=== PATIENT | female | born 1980 | race Caucasian/White ===

== ENCOUNTER 2016-03-08 15:33 | Emergency (ER) | payer SELFPAY ==
[2016-03-08] MEDS ORDERED: Albuterol/Ipratropium NEB.SOL* Albuterol 2.5 MG/Ipratropium 0.5 MG 3 ML ONE (15:34)
--- NOTE | 2016-03-08 15:38 | UC ---
Throat Pain/Nasal Denny HPI - HPI Summary HPI Summary: complaint of cough that started on 03/04/16 non productive cough hasn't been using albuterol because it makes her feel nauseous at times breathing has worsened and today she noticed a cold sore on her lip complaint of right foot pain since 03/04/16 after being on her feet for an entire day sees Dr Cooper will be scheduling surgery for torn ligaments has tried to use a CAM boot in the past but told not to wear boot by ortho was being seen by the pain clinic but stopped being seen them d/t insurance taking mobic for pain and ibuprofen or tylenol without relief ambulating makes it worse, rest lessens the pain constant aching non radiating pain on medial side of foot denies recent trauma - History of Current Complaint Stated Complaint: CHEST CONGESTION Time Seen by Provider: 03/08/16 15:34 Hx Obtained From: Patient Hx Last Menstrual Period: 11/09/13 - Allergies/Home Medications Allergies/Adverse Reactions: Allergies Allergy/AdvReac Type Severity Reaction Status Date / Time Codeine AdvReac Intermediate Itching Verified 03/08/16 15:39 Diphenhydramine AdvReac PANIC Verified 03/08/16 15:39 [From Benadryl] ATTACK ENVIRONMENTAL Allergy Unknown Uncoded 03/08/16 15:39 Reaction Details PMH/Surg Hx/FS Hx/Imm Hx Previously Healthy: No - asthma symptoms Endocrine History Of: Denies: Diabetes, Thyroid Disease Cardiovascular History Of: Denies: Cardiac Disorders, Hypertension, Pacemaker/ICD Respiratory History Of: Reports: Asthma Denies: COPD GI/ History Of: Denies: Gastroesophageal Reflux, Ulcer, Renal Disease Neurological History Of: Denies: CVA, Dementia, Seizures Psychological History Of: Reports: Anxiety - NO MEDS, Depression - NO MEDS Other History Of: Negative For: Anticoagulant Therapy - Surgical History Surgical History: Yes Surgery Procedure, Year, and Place: PITER 2002, [place]LE[place]STECTOMY [place] 2007, PLEOMORPHIC ADENECTOMY [facility] 2007, 2009 RIGHT CARPAL TUNNEL RELEASE [place], 2007 ENDOSCOPY [facility],. HYSERECTOMY 2015 [facility], 2014 LEFT CARPAL TUNNEL RELEASE [place],. 2015 RIGHT CARPAL TUNNEL REVISION, 2015 ULNAR NURVE RELEASE RIGHT - Family History Known Family History: Positive: Hypertension Negative: Cardiac Disease, Diabetes - Social History Occupation: Employed Full-time Lives: With Family Alcohol Use: None Substance Use Type: None Smoking Status (MU): Heavy Every Day Tobacco Smoker Type: Cigarettes Amount Used/How Often: 1/2 PACK A DAY Have You Smoked in the Last Year: No When Did the Patient Quit Smoking/Using Tobacco: 07/2013 Cessation Counseling: Patient Advised to Stop Review of Systems Constitutional: Negative Skin: Negative Eyes: Negative ENT: Nasal Discharge Respiratory: Shortness Of Breath, Cough Cardiovascular: Negative Gastrointestinal: Negative Genitourinary: Negative Motor: Negative Neurovascular: Negative Musculoskeletal: Other: - right foot pain Neurological: Negative Psychological: Negative All Other Systems Reviewed And Are Negative: Yes Physical Exam Triage Information Reviewed: Yes Appearance: No Pain Distress, Well-Nourished, Other: - able to speak in full sentences Vital Signs Reviewed: Yes Eyes: Positive: Conjunctiva Clear ENT: Positive: Pharynx normal, Nasal congestion, TMs normal, Other: - cold sore left upper lip-lateral Neck: Positive: No Lymphadenopathy Respiratory: Positive: Decreased breath sounds, Wheezing - throughout Cardiovascular: Positive: No Murmur, Pulses Normal, Tachycardia Abdomen Description: Positive: Nontender, Soft Bowel Sounds: Positive: Present Musculoskeletal: Positive: No Edema, Other: - right foot -mild edema and tenderness medial side of ankle Neurological: Positive: Alert Psychological Exam: Normal Skin Exam: Normal Re-Evaluation - Re-Evaluation First Eval Re-Evaluation Time: 04:15 Change: Improved Comment: less wheezing throughout , more air movement throughout Throat Pain/Nasal Course/Dx - Course Course Of Treatment: exam completed. lung sounds improved with duoneb treatment. will treat with prednisone and antiviral d/t herpes infection. right foot pain - prednisone may help reduce pain will continue mobic and followup with Dr Cooper. - Differential Dx/Diagnosis Differential Diagnosis/HQI/PQRI: Pharyngitis - asthma excerbation, URI Provider Diagnoses: asthma excerbation, chronic right foot pain, HSV1 Discharge - Discharge Plan Condition: Stable Disposition: HOME Prescriptions: Acyclovir TAB* [Zovirax TAB*] 400 mg PO QID #20 tab predniSONE TAB* [Deltasone TAB*] 50 mg PO DAILY #5 tab Patient Education Materials: Asthma (ED), Oral Herpes Simplex Virus Infections (ED) Referrals: Yanira Morfin MD [Primary Care Provider] - Additional Instructions: Please take antiviral and steroids as directed Use your albuterol inhaler every 4-6 hours when needed for wheezing, shortness of breath or uncontrolled coughing. Increase fluids and rest continue to take MObis for pin in right foot and followup with Dr Cooper Please review your discharge instructions. If your symptoms do not improve please call your primary care provider or return to urgent care.
[2016-03-08 15:39] VITALS: BP 129/74
[2016-03-08] MEDS ORDERED: Albuterol/Ipratropium NEB.SOL* Albuterol 2.5 MG/Ipratropium 0.5 MG 3 ML INH ONE (16:03)
== END 2016-03-08 16:16 | disposition home or self-care (01) ==
LOC: UCEAST 15:33
DX: J45.901 Unspecified asthma with (acute) exacerbation (principal); B00.1 Herpesviral vesicular dermatitis; F17.210 Nicotine dependence, cigarettes, uncomplicated; Z88.5 Allergy status to narcotic agent; Z88.8 Allergy status to other drugs, medicaments and biological substances
CPT/HCPCS: 99212; A9270-GY; G0463

== ENCOUNTER 2016-03-20 03:18 | Emergency (ER) | payer SELFPAY ==
[2016-03-20 03:27] VITALS: BP 149/93
--- NOTE | 2016-05-19 23:13 | ED ---
I, Barrett,Sandi, scribed for Matt Evans MD on 03/20/16 at 0325 . Medical Screening - HPI Summary HPI Summary: This 35 y/o female presents to ED along with trooper for legal blood draw. Pt does not have any complaint at this moment. - History of Current Complaint Stated Complaint: LEGAL BLOOD DRAW Time Seen by Provider: 03/20/16 03:21 Associated Signs and Symptoms: Negative PMH/Surg Hx/FS Hx/Imm Hx Endocrine/Hematology History: Denies: Hx Anticoagulant Therapy, Hx Diabetes, Hx Thyroid Disease Cardiovascular History: Denies: Hx Hypertension, Hx Pacemaker/ICD, Other Cardiovascular Problems/ Disorders Respiratory History: Reports: Hx Asthma Denies: Hx Chronic Obstructive Pulmonary Disease (COPD), Other Respiratory Problems/Disorders GI History: Reports: Hx Gastroesophageal Reflux Disease Denies: Hx Ulcer, Other GI Disorders History: Denies: Hx Renal Disease Musculoskeletal History: Reports: Hx Tendonitis - BILATERAL WRIST Denies: Other Musculoskeletal History Sensory History: Reports: Hx Contacts or Glasses - GLASSES Denies: Hx Hearing Aid Opthamlomology History: Reports: Hx Contacts or Glasses - GLASSES Neurological History: Denies: Hx Dementia, Hx Seizures, Other Neuro Impairments/Disorders Psychiatric History: Reports: Hx Anxiety - NO MEDS, Hx Depression - NO MEDS, Hx Panic Disorder - ANXIETY Denies: Hx Substance Abuse - Cancer History Cancer Type, 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 HYSERECTOMY 2015 [facility], 2014 LEFT CARPAL TUNNEL RELEASE [place],. 2015 RIGHT CARPAL TUNNEL REVISION, 2015 ULNAR NURVE RELEASE RIGHT Hx Anesthesia Reactions: Yes - DIFFICUTY WAKING UP Infectious Disease History: Denies: Hx Clostridium Difficile, Hx Hepatitis, Hx Human Immunodeficiency Virus (HIV), Hx of Known/Suspected MRSA, Hx Shingles, Hx Tuberculosis, History Other Infectious Disease - Family History Known Family History: Positive: Hypertension Negative: Cardiac Disease, Diabetes - Social History Alcohol Use: None Substance Use Type: Reports: None Smoking Status (MU): Heavy Every Day Tobacco Smoker Type: Cigarettes Amount Used/How Often: 1/2 PACK A DAY Have You Smoked in the Last Year: No Review of Systems Negative: Fever Negative: Depressed All Other Systems Reviewed And Are Negative: Yes Physical Exam Triage Information Reviewed: Yes Vital Signs On Initial Exam: Initial Vitals Temp Pulse Resp BP Pulse Ox 97.7 F 85 16 149/93 94 03/20/16 03:24 03/20/16 03:24 03/20/16 03:24 03/20/16 03:24 03/20/16 03:24 Vital Signs Reviewed: Yes Diagnostics - Vital Signs Vital Signs Temp Pulse Resp BP Pulse Ox 03/20/16 03:24 97.7 F 85 16 149/93 94 - Laboratory Lab Statement: Any lab studies that have been ordered have been reviewed, and results considered in the medical decision making process. Course/Dx - Diagnoses Provider Diagnoses: Encounter for medical screening examination Discharge - Discharge Plan Condition: Stable Disposition: HOME Referrals: Yanira Morfin MD [Primary Care Provider] - Additional Instructions: Pt was present in [facility] ED for legal blood draw. The documentation as recorded by the Barrett balderas Soohyun accurately reflects the service I personally performed and the decisions made by Nathan jeronimo David, MD.
== END 2016-03-20 03:41 | disposition home or self-care (01) ==
LOC: ED 03:18
DX: Z02.83 Encounter for blood-alcohol and blood-drug test (principal)
CPT/HCPCS: 99282

== ENCOUNTER 2016-04-06 21:23 | Emergency (ER) | payer OTHER, MEDICAID ==
[2016-04-06] MEDS ORDERED: Aspirin Low Dose CHEW TAB* 81 MG PO ONE (22:23)
[2016-04-06] MEDS ORDERED: Albuterol 2.5 MG/3 ML NEB.SOL* (0.083%) INH ONE (22:27)
[2016-04-06] MEDS ORDERED: Ipratropium 0.5MG/2.5ML NEB* 0.5 MG/2.5 ML NEB.SOLN INH ONE (22:27)
[2016-04-06 22:50] VITALS: BP 120/74
--- NOTE | 2016-04-07 00:27 | UC ---
Israel Weldon Adam, scribed for Kim Abad, DO on 04/06/16 at 2203 . Respiratory Complaint HPI - HPI Summary HPI Summary: Pt is a 35 year old female presenting with SOB. She states that she has been unable to catch her breath today. She also reports sharp pain in her chest as well as increased heartburn this week. This evening both the SOB and CP grew worse. She checked her BP several times manually over the course of an hour and the highest reading was 160/110. After lying down, the lowest reading was 145/ 95. Pt also reports lightheadedness and nausea this week, as well as abdominal pain (which is fairly regular). She denies diaphoresis, pain in neck/jaw/arm, fever, chills, cough, rhinorrhea, and sore throat. PMHx of asthma. FMHx of HTN, DM, and cardiac disease (youngest family member to have NV was 40). Positive tobacco use. - History of Current Complaint Chief Complaint: UCRespiratory Stated Complaint: CHEST PAIN/BREATHING COMPL Time Seen by Provider: 04/06/16 21:24 Hx Obtained From: Patient, Family/Windscreen Fitter Hx Last Menstrual Period: 11/09/13 Onset/Duration: Gradual Onset, Lasting Days - 3, Still Present, Worse Since - today Severity Initially: Moderate Severity Currently: Moderate Aggravating Factors: Nothing Alleviating Factors: Nothing Associated Signs And Symptoms: Positive: Dyspnea, Pleuritic Chest Pain, Dizziness, Calf Pain, Calf Swelling. Negative: Fever, Chills, Wheezing, Hemoptysis, URI, Nasal Congestion, Hoarseness, Sinus Discomfort - Risk Factors Pulmonary Embolism Risk Factors: Smoking Cardiac Risk Factors: Smoking, Family History - Allergies/Home Medications Allergies/Adverse Reactions: Allergies Allergy/AdvReac Type Severity Reaction Status Date / Time Codeine AdvReac Intermediate Itching Verified 04/06/16 21:34 Diphenhydramine AdvReac PANIC Verified 04/06/16 21:34 [From Benadryl] ATTACK ENVIRONMENTAL Allergy Unknown Uncoded 04/06/16 21:34 Reaction Details Home Medications: Home Medications HYDROcodone/ACETAMIN 5-325 MG* [[place] 5-325 TAB*] 1 tab PO Q8H PRN 04/06/16 [ History Confirmed 04/06/16] PMH/Surg Hx/FS Hx/Imm Hx Endocrine History Of: Denies: Diabetes, Thyroid Disease Cardiovascular History Of: Denies: Cardiac Disorders, Hypertension, Pacemaker/ICD Respiratory History Of: Reports: Asthma Denies: COPD GI/ History Of: Denies: Gastroesophageal Reflux, Ulcer, Renal Disease Neurological History Of: Denies: CVA, Dementia, Seizures Psychological History Of: Reports: Anxiety - NO MEDS, Depression - NO MEDS Other History Of: Negative For: Anticoagulant Therapy - Surgical History Surgical History: Yes Surgery Procedure, Year, and Place: PITER 2002, CHOLE[place]STECTOMY [place] 2007, PLEOMORPHIC ADENECTOMY [facility] 2007, 2009 RIGHT CARPAL T[place]NEL RELEASE [place], [facility] HYS[facility] 2015 [facility], 2014 LEFT CARPAL TUNNEL RELEASE [place] 2015 RIGHT CARPAL TUNNEL REVISION, 2015 ULN[facility] NURVE RELEASE RIGHT - Family History Known Family History: Positive: Hypertension Negative: Cardiac Disease, Diabetes - Social History Occupation: Unemployed Lives: With Family - Mother, significant other Alcohol Use: None Substance Use Type: None Smoking Status (MU): Current Every Day Smoker Type: Cigarettes Amount Used/How Often: 1/2 PPD Have You Smoked in the Last Year: No When Did the Patient Quit Smoking/Using Tobacco: 07/2013 Household Exposure Type: Cigarettes Cessation Counseling: Patient Advised to Stop - Immunization History Most Recent Influenza Vaccination: not this year Review of Systems Constitutional: Fatigue Skin: Negative Eyes: Negative ENT: Negative Respiratory: Shortness Of Breath Cardiovascular: Chest Pain Gastrointestinal: Abdominal Pain, Other - Nausea Genitourinary: Negative Motor: Negative Neurovascular: Negative Musculoskeletal: Negative Neurological: Other - Lightheadedness Psychological: Negative All Other Systems Reviewed And Are Negative: Yes Physical Exam Triage Information Reviewed: Yes Appearance: Well-Appearing, No Pain Distress, Well-Nourished Vital Signs: Initial Vital Signs Temp 98.2 F 04/06/16 21:25 Pulse 89 04/06/16 21:25 Resp 24 04/06/16 21:25 BP 146/73 04/06/16 21:25 Pulse Ox 100 04/06/16 21:25 Vital Signs Reviewed: Yes Eyes: Positive: Conjunctiva Clear. Negative: Discharge ENT: Positive: Hearing grossly normal. Negative: Muffled/hoarse voice Neck exam: Normal Neck: Positive: Supple Respiratory: Positive: Lungs clear, Normal breath sounds, No respiratory distress, No accessory muscle use Cardiovascular: Positive: RRR, No Murmur Abdomen Description: Positive: Nontender, Soft. Negative: CVA Tenderness (R), CVA Tenderness (L), Distended, Guarding Bowel Sounds: Positive: Present Musculoskeletal Exam: Normal Neurological: Positive: Alert, Muscle Tone Normal Psychological Exam: Normal Psychological: Positive: Age Appropriate Behavior Skin Exam: Normal Skin: Positive: Other - Warm, dry, normal color UC Diagnostic Evaluation - Laboratory Result Diagrams: 04/06/16 22:40 O2 Sat by Pulse Oximetry: 100 - EKG Cardiac Rate: NL - 78 BPM @ 21:26 Cardiac Rhythm: Sinus: Normal Respiratory Course/Dx - Differential Dx/Diagnosis Differential Diagnosis/HQI/PQRI: Asthma, Bronchitis, Lower Resp Infection, Pulmonary Embolism Provider Diagnoses: Chest pain, rule out ACS and PE Discharge - Discharge Plan Condition: Stable Disposition: TRANS HIGHER LVL OF CARE FAC Referrals: Yanira Morfin MD [Primary Care Provider] - The documentation as recorded by the Israel balderas Adam accurately reflects the service I personally performed and the decisions made by , Kim Abad DO.
== END 2016-04-06 22:51 | disposition short-term general hospital (02) ==
LOC: UCEAST 21:23
DX: R07.9 Chest pain, unspecified (principal); F17.210 Nicotine dependence, cigarettes, uncomplicated; Z82.49 Family history of ischemic heart disease and other diseases of the circulatory system; Z88.5 Allergy status to narcotic agent; Z88.8 Allergy status to other drugs, medicaments and biological substances
CPT/HCPCS: 36415; 80053; 82550; 82553; 83721; 83874; 83880; 84484; 85027; 85610; 85730; 86850; 86900; 86901; 93005; 99214; A9270-GY; G0463; J7644

== ENCOUNTER 2016-04-06 23:14 | Emergency (ER) | payer OTHER, MEDICAID ==
[2016-04-07 00:10] LABS: Hematocrit 38 % (35-47); Hemoglobin 13.1 g/dl (12.0-16.0); Mean Corpuscular HGB Conc 34 g/dl (31-36); Mean Corpuscular Hemoglobin 30 pg (27-31); Mean Corpuscular Volume 89 fL (80-97); Mean Platelet Volume 7 um3 (7.4-10.4); Red Blood Count 4.32 10^6/ul (4.0-5.4); Red Cell Distribution Width 13 % (10.5-15)
[2016-04-07 00:25] LABS: BUN/Creatinine Ratio 18.3 (8-20); Calcium 9.3 mg/dL (8.6-10.3); EGFR African American 121.2 (>60); EGFR Non-African American 94.2 (>60); Globulin 2.9 g/dL (2-4); Total Bilirubin 0.2 mg/dL (0.2-1.0); Total Protein 6.9 g/dL (6.4-8.9)
[2016-04-07 00:31] LABS: Urine Bilirubin Negative (Negative); Urine Glucose Negative (Negative); Urine Nitrite Negative (Negative)
[2016-04-07 00:31] LABS: Potassium 4.2 mmol/L (3.5-5.0)
[2016-04-07] MEDS ORDERED: methylPREDNISolone 125 MG* 2 ML VIAL IV ONE (00:43)
[2016-04-07] MEDS ORDERED: Albuterol 2.5 MG/3 ML NEB.SOL* (0.083%) INH ONE (00:43)
[2016-04-07] MEDS ORDERED: Albuterol 2.5 MG/3 ML NEB.SOL* (0.083%) ONE (01:49)
[2016-04-07 02:39] VITALS: BP 145/71
--- NOTE | 2016-04-07 03:38 | ED ---
Safia Weldon Rebecca, scribed for Pb Frazier on 04/07/16 at 0047 . Shortness of Breath - HPI Summary HPI Summary: Pt is a 35 y/o F who presents to ED c/o SOB. Sob began gradually 3 days ago and has been constant since onset, characterized as dyspnea at rest. SOB is currently moderate. Sx aggravated and alleviated by nothing. Additionally c/o mild CP. Denies cough and fever. Pt was referred from [facility]. Per pt, she was administered NTG by EMS en route to ED. Pt was given Duoneb at [facility] and she states "it made me feel horrible." SHx current smoker. PMHx asthma - treats with albuterol. FHx CAD. - History of Current Complaint Chief Complaint: EDShortnessOfBreath Time Seen by Provider: 04/07/16 00:34 Hx Obtained From: Patient Onset/Duration: Gradual Onset, Lasting Days - 3 days, Still Present Timing: Constant Current Severity: Moderate Dyspnea At: Rest Aggrevating Factors: Nothing Alleviating Factors: Nothing Associated Signs & Symptoms: Chest Pain Unrelated to Cough - mild - Allergy/Home Medications Allergies/Adverse Reactions: Allergies Allergy/AdvReac Type Severity Reaction Status Date / Time Codeine AdvReac Intermediate Itching Verified 04/06/16 21:34 Diphenhydramine AdvReac PANIC Verified 04/06/16 21:34 [From Benadryl] ATTACK ENVIRONMENTAL Allergy Unknown Uncoded 04/06/16 21:34 Reaction Details PMH/Surg Hx/FS Hx/Imm Hx Endocrine/Hematology History: Denies: Hx Anticoagulant Therapy, Hx Diabetes, Hx Thyroid Disease Cardiovascular History: Denies: Hx Hypertension, Hx Pacemaker/ICD, Other Cardiovascular Problems/ Disorders Respiratory History: Reports: Hx Asthma Denies: Hx Chronic Obstructive Pulmonary Disease (COPD), Other Respiratory Problems/Disorders GI History: Reports: Hx Gastroesophageal Reflux Disease Denies: Hx Ulcer, Other GI Disorders History: Denies: Hx Renal Disease Musculoskeletal History: Reports: Hx Tendonitis - BILATERAL WRIST Denies: Other Musculoskeletal History Sensory History: Reports: Hx Contacts or Glasses - GLASSES Denies: Hx Hearing Aid Opthamlomology History: Reports: Hx Contacts or Glasses - GLASSES Neurological History: Denies: Hx Dementia, Hx Seizures, Other Neuro Impairments/Disorders Psychiatric History: Reports: Hx Anxiety - NO MEDS, Hx Depression - NO MEDS, Hx Panic Disorder - ANXIETY Denies: Hx Substance Abuse - Cancer History Cancer Type, 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 HYSERECTOMY 2015 [facility], 2014 LEFT CARPAL TUNNEL RELEASE [place],. 2015 RIGHT CARPAL TUNNEL REVISION, 2015 ULNAR NURVE RELEASE RIGHT Hx Anesthesia Reactions: Yes - DIFFICUTY WAKING UP Infectious Disease History: No Infectious Disease History: Denies: Hx Clostridium Difficile, Hx Hepatitis, Hx Human Immunodeficiency Virus (HIV), Hx of Known/Suspected MRSA, Hx Shingles, Hx Tuberculosis, Hx Known/ Suspected VRE, History Other Infectious Disease, Traveled Outside the in Last 30 Days - Family History Known Family History: Positive: Cardiac Disease, Hypertension Negative: Diabetes - Social History Alcohol Use: None Substance Use Type: Reports: None Smoking Status (MU): Current Every Day Smoker Type: Cigarettes Amount Used/How Often: 1/2 PPD Have You Smoked in the Last Year: No Review of Systems Negative: Fever Positive: Chest Pain - mild Positive: Shortness Of Breath - dyspnea at rest. Negative: Cough All Other Systems Reviewed And Are Negative: Yes Physical Exam Triage Information Reviewed: Yes Vital Signs On Initial Exam: Initial Vitals Temp Pulse Resp BP Pulse Ox 97.8 F 69 16 136/91 99 04/07/16 00:10 04/07/16 00:10 04/07/16 00:10 04/07/16 00:10 04/07/16 00:10 Vital Signs Reviewed: Yes Appearance: Positive: Well-Appearing, No Pain Distress Skin: Positive: Warm, Skin Color Reflects Adequate Perfusion, Dry Head/Face: Positive: Normal Head/Face Inspection Eyes: Positive: EOMI, JOHN ENT: Positive: Normal ENT inspection Neck: Positive: Supple, Nontender Respiratory/Lung Sounds: Positive: Breath Sounds Present, Wheezes - Occasional bilateral wheezing Cardiovascular: Positive: RRR, Pulses are Symmetrical in both Upper and Lower Extremities Abdomen Description: Positive: Nontender, Soft Bowel Sounds: Positive: Present Musculoskeletal: Positive: Normal, Strength/ROM Intact Neurological: Positive: Normal, Sensory/Motor Intact, Alert, Oriented to Person Place, Time Diagnostics - Vital Signs Vital Signs Temp Pulse Resp BP Pulse Ox 04/07/16 00:19 68 15 99 04/07/16 00:17 136/91 04/07/16 00:10 97.8 F 69 16 136/91 99 - Laboratory Lab Results: Lab Results 04/07/16 Range/Units 00:15 Urine Color Straw Urine Appearance Clear Urine pH 8.0 (5-9) Ur Specific [place] 1.006 L (1.010-1.030) Urine Protein Negative (Negative) Urine Ketones Negative (Negative) Urine Blood Negative (Negative) Urine Nitrate Negative (Negative) Urine Bilirubin Negative (Negative) Urine Urobilinogen Negative (Negative) Ur Leukocyte Esterase Negative (Negative) Urine Glucose Negative (Negative) Lab Statement: Any lab studies that have been ordered have been reviewed, and results considered in the medical decision making process. - Radiology CXR Xray Interpretation: No Acute Changes Radiology Interpretation Completed By: ED Physician - EKG 0044 Cardiac Rate: NL - 72 bpm EKG Rhythm: Sinus Rhythm EKG Interpretation: No acute changes Course/Dx - Course Assessment/Plan: Pt is a 35 y/o F with a CC of SOB characterized as dyspnea at rest for 3 days. Additionally c/o mild CP. Denies cough, fever. PMHx asthma. Pt referred from [facility]. CXR and EKG reveal no acute pathology. Pt will be D/C to home with a dx of asthma and chest pain with a followup with her PCP. - Diagnoses Provider Diagnoses: Asthma, Chest pain Discharge - Discharge Plan Condition: Stable Disposition: HOME Patient Education Materials: Asthma (ED), Chest Pain (ED) Referrals: Yanira Morfin MD [Primary Care Provider] - 3 Days (Follow up with your primary care physician in the next 3 days. ) The documentation as recorded by the Safia balderas Rebecca accurately reflects the service I personally performed and the decisions made by , Pb Frazier.
--- NOTE | 2016-04-07 08:07 | RAD ---
HISTORY: Shortness of breath COMPARISONS: September 25, 2015 VIEWS:1: Single frontal portable view of the chest at 12:53 AM FINDINGS: LINES AND TUBES: None. CARDIOMEDIASTINAL SILHOUETTE: The cardiomediastinal silhouette is normal for portable technique. PLEURA: The costophrenic angles are sharp. No pleural abnormalities are noted. LUNG PARENCHYMA: The lungs are clear. ABDOMEN: The upper abdomen is clear. There is no subphrenic gas. BONES AND SOFT TISSUES: No bone or soft tissue abnormalities are noted. IMPRESSION: NO ACTIVE CARDIOPULMONARY DISEASE.
== END 2016-04-07 02:45 | disposition home or self-care (01) ==
LOC: ED 23:14
DX: R06.02 Shortness of breath (principal); R07.9 Chest pain, unspecified; J45.909 Unspecified asthma, uncomplicated; R05 Cough; F17.210 Nicotine dependence, cigarettes, uncomplicated
CPT/HCPCS: 36415; 71010; 80053; 81003; 82550; 82553; 83721; 83874; 83880; 84484; 85027; 85610; 85730; 86850; 86900; 86901; 93005; 94640; 94760; 96374; 99284; J2930

== ENCOUNTER 2016-07-10 16:10 | Emergency (ER) | payer MEDICAID, OTHER ==
[2016-07-10 17:13] VITALS: BP 126/63
[2016-07-10] MEDS ORDERED: DOXYcycline CAP(*) 100 MG PO ONE (18:58)
[2016-07-10] MEDS ORDERED: Ondansetron ODT TAB* 4 MG PO ONE (18:58)
--- NOTE | 2016-07-10 19:02 | ED ---
Skin Complaint - HPI Summary HPI Summary: 35F presents with tick bite two weeks ago to the left breast. She started to notice a rash on the area two days ago. She states today she started to feel ill and that she is nausea. She denies any headache, neck pain, abdominal pain , fever. She does not have an allergy to doxcycline. - History of Current Complaint Chief Complaint: UCSkin Time Seen by Provider: 07/10/16 18:43 Stated Complaint: TICK BITE Hx Last Menstrual Period: hysterectomy - Allergy/Home Medications Allergies/Adverse Reactions: Allergies Allergy/AdvReac Type Severity Reaction Status Date / Time Codeine AdvReac Intermediate Itching Verified 04/06/16 21:34 Diphenhydramine AdvReac PANIC Verified 04/06/16 21:34 [From Benadryl] ATTACK ENVIRONMENTAL Allergy Unknown Uncoded 04/06/16 21:34 Reaction Details PMH/Surg Hx/FS Hx/Imm Hx Endocrine/Hematology History: Denies: Hx Anticoagulant Therapy, Hx Diabetes, Hx Thyroid Disease Cardiovascular History: Denies: Hx Hypertension, Hx Pacemaker/ICD, Other Cardiovascular Problems/ Disorders Respiratory History: Reports: Hx Asthma Denies: Hx Chronic Obstructive Pulmonary Disease (COPD), Other Respiratory Problems/Disorders GI History: Reports: Hx Gastroesophageal Reflux Disease Denies: Hx Ulcer, Other GI Disorders History: Denies: Hx Renal Disease Musculoskeletal History: Reports: Hx Tendonitis - BILATERAL WRIST Denies: Other Musculoskeletal History Sensory History: Reports: Hx Contacts or Glasses - GLASSES Denies: Hx Hearing Aid Opthamlomology History: Reports: Hx Contacts or Glasses - GLASSES Neurological History: Denies: Hx Dementia, Hx Seizures, Other Neuro Impairments/Disorders Psychiatric History: Reports: Hx Anxiety - NO MEDS, Hx Depression - NO MEDS, Hx Panic Disorder - ANXIETY Denies: Hx Substance Abuse - Cancer History Cancer Type, 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 HYSERECTOMY 2015 [place], 2014 LEFT CARPAL TUNNEL RELEASE [place],. 2015 RIGHT CARPAL TUNNEL REVISION, 2015 ULNAR NURVE RELEASE RIGHT Hx Anesthesia Reactions: Yes - DIFFICUTY WAKING UP Infectious Disease History: No Infectious Disease History: Denies: Hx Clostridium Difficile, Hx Hepatitis, Hx Human Immunodeficiency Virus (HIV), Hx of Known/Suspected MRSA, Hx Shingles, Hx Tuberculosis, Hx Known/ Suspected VRE, History Other Infectious Disease, Traveled Outside the [place] in Last 30 Days - Family History Known Family History: Positive: Cardiac Disease, Hypertension Negative: Diabetes - Social History Alcohol Use: None Substance Use Type: Reports: None Hx Tobacco Use: Yes Smoking Status (MU): Current Every Day Smoker Type: Cigarettes Amount Used/How Often: 1/2 PPD Have You Smoked in the Last Year: No Review of Systems Negative: Fever Negative: Chest Pain Negative: Shortness Of Breath Positive: Rash - to left breast All Other Systems Reviewed And Are Negative: Yes Physical Exam Triage Information Reviewed: Yes Vital Signs On Initial Exam: Initial Vitals Temp Pulse Resp BP Pulse Ox 98.8 F 79 20 126/63 100 07/10/16 17:09 07/10/16 17:09 07/10/16 17:09 07/10/16 17:09 07/10/16 17:09 Vital Signs Reviewed: Yes Appearance: Positive: Well-Appearing Skin: Positive: Warm, Dry, Other - 5cm by 6cm area of redness to the left breast that is warm to touch, area in center of whiteness could represent early erythema migrans Head/Face: Positive: Normal Head/Face Inspection Eyes: Positive: Normal, Conjunctiva Clear ENT: Positive: Normal ENT inspection, Pharynx normal, TMs normal Respiratory/Lung Sounds: Positive: Clear to Auscultation, Breath Sounds Present Cardiovascular: Positive: Normal, RRR Diagnostics - Vital Signs Vital Signs Temp Pulse Resp BP Pulse Ox 07/10/16 17:09 98.8 F 79 20 126/63 100 - Laboratory Lab Statement: Any lab studies that have been ordered have been reviewed, and results considered in the medical decision making process. Course/Dx - Course Course Of Treatment: 35F presents with rash to left breast starting three days ago. She denies any fever. Did have tick bite there two weeks ago. on exam rash appears sort of like erythema migrains so will treat with doxcycline. literature shows can use 10 days to 21 so gave 21 days and told pt can do 10 days as doxcycline is GI irritating to her. gave zofran also. patient understands and agrees with plan - Differential Diagnoses - Skin Complaint Differential Diagnoses: Cellulitis, Systemic Illness, Tick Born Illness - Diagnoses Provider Diagnoses: Lyme disease Discharge - Discharge Plan Condition: Good Disposition: HOME Prescriptions: DOXYcycline CAP(*) [DOXYcycline 100MG CAP(*)] 100 mg PO BID #40 cap Ondansetron ODT TAB* [Zofran 4 MG Odt TAB*] 4 mg PO Q6H PRN #40 tab.odt PRN Reason: Nausea Patient Education Materials: Lyme Disease (ED) Referrals: Yanira Morfin MD [Primary Care Provider] - [facility] [place] [facility] [Outside] Additional Instructions: Take antibiotic twice a day for 21 days, can stop at 10 days if feeling better as literature shows 10 days if often adequate for treatment Take zofran every 6 hours for nausea Take antibiotic with food Establish care with primary to follow up with Return to ED if develop fever, neck stiffness, or any new or worsening symptoms
== END 2016-07-10 19:10 | disposition home or self-care (01) ==
LOC: UCEAST 16:10
DX: A69.20 Lyme disease, unspecified (principal); W57.XXXA Bitten or stung by nonvenomous insect and other nonvenomous arthropods, initial encounter; Y93.9 Activity, unspecified; Y92.9 Unspecified place or not applicable; Y99.9 Unspecified external cause status; Z72.0 Tobacco use
CPT/HCPCS: 99212; A9270-GY; G0463

== ENCOUNTER 2016-09-29 10:41 | Emergency (ER) | payer MEDICAID ==
--- NOTE | 2016-09-29 13:09 | RAD ---
HISTORY: Acute on chronic injury of the right foot COMPARISONS: September 25, 2015 VIEWS: 3, Frontal, lateral, and oblique views of the right foot FINDINGS: BONE DENSITY: Normal. BONES: There is no displaced fracture. JOINTS: There is no arthropathy. ALIGNMENT: There is no dislocation. SOFT TISSUES: Unremarkable. OTHER FINDINGS: None. IMPRESSION: NO ACUTE OSSEOUS INJURY. IF SYMPTOMS PERSIST, RECOMMEND REPEAT IMAGING.
[2016-09-29 13:27] VITALS: BP 133/89
--- NOTE | 2016-09-29 14:32 | UC ---
Lower Extremity/Ankle HPI - HPI Summary HPI Summary: HAS APPOINTMENT WITH DR ALFONSO FOR NEXT WEEK. HAS CHRONIC RIGHT FOOT PAIN. LAST WEEK HAD INVERSION INJURY AND FOOT PAIN RETURNED AND WORSENED. - History of Current Complaint Chief Complaint: UCLowerExtremity Stated Complaint: FOOT INJURY Time Seen by Provider: 09/29/16 12:39 Hx Obtained From: Patient Hx Last Menstrual Period: hysterectomy Onset/Duration: Sudden Onset, Lasting Weeks, Still Present Severity Initially: Moderate Severity Currently: Moderate Pain Intensity: 0 Pain Scale Used: 0-10 Numeric Aggravating Factor(s): Standing, Ambulation Alleviating Factor(s): Rest, Elevation Able to Bear Weight: Yes - Risk Factors Gout Risk Factors: Negative DVT Risk Factors: Negative Septic Arthritis Risk Factor: Negative - Allergies/Home Medications Allergies/Adverse Reactions: Allergies Allergy/AdvReac Type Severity Reaction Status Date / Time Codeine AdvReac Intermediate Itching Verified 09/29/16 12:09 Diphenhydramine AdvReac PANIC Verified 09/29/16 12:09 [From Benadryl] ATTACK ENVIRONMENTAL Allergy Unknown Uncoded 09/29/16 12:09 Reaction Details PMH/Surg Hx/FS Hx/Imm Hx Previously Healthy: Yes Other History Of: Negative For: Anticoagulant Therapy - Surgical History Surgical History: Yes Surgery Procedure, Year, and Place: PITER 2002, [place]ECTOMY [place] 2007, PLEOMORPHIC ADENECTOMY [facility] 2007, 2009 RIGHT CARPAL T[place]NEL RELEASE [place], [facility] [place] [place], 2014 LEFT CARPAL TUNNEL RELEASE [place],. 2015 RIGHT CARPAL TUNNEL REVISION, 2015 ULNAR NURVE RELEASE RIGHT - Family History Known Family History: Positive: Cardiac Disease, Hypertension Negative: Diabetes - Social History Occupation: Employed Full-time Lives: With Family Alcohol Use: None Substance Use Type: None Smoking Status (MU): Never Smoked Tobacco Type: Cigarettes Amount Used/How Often: 1/2 PPD Have You Smoked in the Last Year: No When Did the Patient Quit Smoking/Using Tobacco: 07/2013 Household Exposure Type: Cigarettes - Immunization History Most Recent Influenza Vaccination: not this year Review of Systems Constitutional: Negative Skin: Negative Eyes: Negative ENT: Negative Respiratory: Negative Cardiovascular: Negative Gastrointestinal: Negative Genitourinary: Negative Motor: Negative Neurovascular: Negative Musculoskeletal: Arthralgia, Myalgia Neurological: Negative Psychological: Negative All Other Systems Reviewed And Are Negative: Yes Physical Exam Triage Information Reviewed: Yes Appearance: Well-Appearing, Well-Nourished, Pain Distress Vital Signs: Initial Vital Signs Temp 98.5 F 09/29/16 12:13 Pulse 103 09/29/16 12:13 Resp 20 09/29/16 12:13 BP 134/99 09/29/16 12:13 Pulse Ox 99 09/29/16 12:13 Vital Signs Reviewed: Yes Eye Exam: Normal ENT Exam: Normal Dental Exam: Normal Neck exam: Normal Respiratory Exam: Normal Respiratory: Positive: Chest non-tender, Lungs clear, Normal breath sounds, No respiratory distress, No accessory muscle use Cardiovascular Exam: Normal Cardiovascular: Positive: RRR, No Murmur Abdominal Exam: Normal Musculoskeletal: Positive: Strength Intact, ROM Intact, No Edema, Other: - RIGHT FOOT LATERAL TENDERNESS Neurological Exam: Normal Psychological Exam: Normal Skin Exam: Normal Lower Extremity Course/Dx - Differential Dx/Diagnosis Differential Diagnosis/HQI/PQRI: Fracture (Closed), Sprain, Strain Provider Diagnoses: CHRONIC RIGHT FOOT PAIN, ACUTE RIGHT FOOT SPRAIN Discharge - Discharge Plan Condition: Stable Disposition: HOME Prescriptions: HYDROcodone/ACETAMIN 5-325 MG* [Davidson 5-325 TAB*] 1 tab PO Q8H PRN #12 tab MDD three tabs PRN Reason: Pain Patient Education Materials: Chronic Pain (ED), Arthralgia (ED) Referrals: [facility] [Outside] Italo Alfonso MD [Medical Doctor] - Yanira Morfin MD [Primary Care Provider] -
== END 2016-09-29 14:02 | disposition home or self-care (01) ==
LOC: UCEAST 10:41
DX: S93.601S Unspecified sprain of right foot, sequela (principal); M79.671 Pain in right foot; X50.1XXS Overexertion from prolonged static or awkward postures, sequela; Z88.5 Allergy status to narcotic agent; Z90.49 Acquired absence of other specified parts of digestive tract; Z90.710 Acquired absence of both cervix and uterus; Z87.891 Personal history of nicotine dependence
CPT/HCPCS: 99213; G0463

== ENCOUNTER 2016-11-20 08:59 | Day surgery (SDC) | payer MEDICAID ==
[~2016-11-20 08:59] MED LIST: Buffered Lidocaine 0.9% SYRIN* 5 ML/SYR SYRINGE INTRADERM ONE
[2016-11-20] MEDS ORDERED: ceFAZolin 2 GM PREMIX (*) 50 ML IVPB ONE ×2 (09:17)
[2016-11-20] MEDS ORDERED: Buffered Lidocaine 0.9% SYRIN* 5 ML/SYR SYRINGE ONE ×2 (09:17)
[2016-11-20] MEDS ORDERED: Bupivacaine 0.5% SDV PF* 30 ML VIAL ONE ×2 (10:33)
[2016-11-20] MEDS ORDERED: Midazolam* 1 MG/ML 5 ML VIAL (5 MG) ONE ×2 (10:37)
[2016-11-20] MEDS ORDERED: fentaNYL* 50 MCG/ML 2 ML VIAL (100 MCG VIAL) ONE ×10 (10:37→12:19)
[2016-11-20] MEDS ORDERED: Atracurium* 10 MG/ML 10 ML VIAL ONE ×2 (10:55)
[2016-11-20] MEDS ORDERED: Ketorolac INJ* 30 MG/ML 1 ML VIAL ONE ×2 (11:10)
[2016-11-20] MEDS ORDERED: Dexamethasone IV* 4 MG/ML 1 ML (4 MG) ONE ×2 (11:11)
[2016-11-20] MEDS ORDERED: Ondansetron INJ* 2 MG/ML VIAL ONE ×2 (11:30)
[2016-11-20] MEDS ORDERED: oxyCODONE TAB* 5 MG TAB PO PRN (11:31)
[2016-11-20] MEDS ORDERED: Ondansetron INJ* 2 MG/ML VIAL IV PRN (11:31)
[2016-11-20] MEDS ORDERED: Neostigmine Methylsulfate* 2 MG/2 ML SYRINGE ONE ×4 (11:35→11:36)
[2016-11-20] MEDS ORDERED: Glycopyrrolate IV* 0.2 MG/ML 1 ML VIAL ONE ×4 (11:35→11:36)
[2016-11-20] MEDS ORDERED: HYDROmorphone INJ* 1 MG/ML CARPUJECT SYRINGE ONE ×2 (11:53)
[2016-11-20] MEDS ORDERED: HYDROcodone/ACETAMIN 5-325 MG* 1 TAB ONE ×3 (11:53→12:32)
[2016-11-20] MEDS ORDERED: oxyCODONE TAB* 5 MG TAB ONE (11:53)
[2016-11-20] MEDS: HYDROmorphone INJ* 1 MG/ML CARPUJECT SYRINGE IV PRN ×10 (11:56→13:06)
[2016-11-20] MEDS: fentaNYL* 50 MCG/ML 2 ML VIAL (100 MCG VIAL) IV PRN ×5 (11:58→12:20)
[2016-11-20] MEDS: HYDROcodone/ACETAMIN 5-325 MG* 1 TAB PO PRN ×2 (12:02→12:32)
[2016-11-20 13:00] VITALS: BP 127/60
--- NOTE | 2016-11-21 01:35 | OP ---
DATE OF OPERATION: 11/20/16 - [facility] DATE OF : 82 ATTENDING SURGEON: Italo Cooper MD BOX LINER: Jackie Ball PA-C ANESTHESIOLOGIST: Tano Morillo MD ANESTHESIA: General PRE-OP DIAGNOSIS: Right ankle instability. POST-OP DIAGNOSIS: Right ankle instability. OPERATIVE PROCEDURE: Right ankle ligament repair. DESCRIPTION OF PROCEDURE: The patient was taken to the operating room where a lateral longitudinal incision was made over the distal fibula. We incised directly along the anterior and distal fibular capsule and then raised the periosteum posteriorly off the distal fibula. A 0.062 C-wire was used to make through bone passages for the #1 Vicryl which was used in a Roberto-Winston suture to repair the capsule tightly to the anterior distal fibula. We then brought the reflected periosteum down over the capsule repair with 2-0 Vicryl, subcutaneous tissue 2-0 Vicryl, and spring for the skin and a compression dressing plaster splint applied. [id number]/CPS #: [id number] [facility]
[2016-11-23] MEDS ORDERED: HYDROcodone/ACETAMIN 5-325 MG* 1 TAB ONE (12:32)
== END 2016-11-20 13:39 | disposition home or self-care (01) ==
LOC: OR 08:59
PROVIDERS: ATTEND Orthopaedic Surgery
DX: M25.371 Other instability, right ankle (principal); Z88.5 Allergy status to narcotic agent; Z88.8 Allergy status to other drugs, medicaments and biological substances; F17.200 Nicotine dependence, unspecified, uncomplicated; S93.401A Sprain of unspecified ligament of right ankle, initial encounter; X58.XXXA Exposure to other specified factors, initial encounter; Y92.9 Unspecified place or not applicable; J45.909 Unspecified asthma, uncomplicated
CPT/HCPCS: A9270-GY; C1776; J0690; J1100; J1170; J1885; J2250; J2405; J3010

== ENCOUNTER 2017-07-04 20:07 | Emergency (ER) | payer OTHER ==
--- OUTSIDE RECORDS SUMMARY | 2017-07-04 20:17 | XMS REPORT ---
:1980 External Reference #:[id number] Author Organization [facility] Address [address] [address] Phone [phone] Care Team Providers Name Role Phone Patient's Choice Primary Care Physician Unavailable Payers Type Date Identification Numbers Payment Provider Subscriber Commercial Effective: Policy Number: Jose Kumar 2016 [id number] Group Number: [id number] [address] PayID: [id number] [place] [address] Medigap Part B Effective: 2016 Policy Number: [id number] Medicaid Makenzie Kumar Expires: 2016 Group Name: 1 1 [address] PayID: [id number] [place] [address] Problems Date Description Provider Status Onset: 08/18/2014 Carpal tunnel syndrome LASHAE Rollins Active Family History Date Family Member(s) Problem(s) Comments General Heart Disease General Diabetes General Cancer Social History Type Date Description Comments Lives With Children ETOH Use Denies alcohol use Smoking Patient is a current smoker, smokes every day Exercise Type/Frequency Does not exercise Allergies, Adverse Reactions, Alerts Date Description Reaction Status Severity Comments 08/18/2014 Codeine active 08/18/2014 Benadryl active 08/18/2014 Toradol inactive Medications Medication Date Status Form Strength Qnty SIG Indications Ordering Provider Patrice 3D 06/19/ Active M25.371 Italo Ankle 2018 Jacinta Cooper M.D. Support Gabapentin 04/19/ Active Capsules 300mg 90caps 1 by mouth Italo 2017 before bed. Abbey Cooper Ibuprofen / Active Tablets 200mg Daily Unknown 0000 Albuterol / Active Unknown Sulfate 0000 Aleve / Active Tablets 220mg Daily Unknown 0000 Acetaminophen / Active Tablets 500mg 1-2 tabs 3x Unknown 0000 a day [place] 02/13/ Hx Tablets 5-325mg 40tabs 1 tab by Italo 2018 - mouth every Kenneth, 04/19/ 6 hours as M.D. 2017 needed pain [place] 01/01/ Hx Tablets 5-325mg 8tabs one tablet Italo 2016 - every other Kenneth, 01/25/ day before M.D. 2016 PT or after as needed Date of next refill- 01/12/2017 [place] 11/20/ Hx Tablets 5-325mg 40tabs 1 by mouth Italo 2016 - every 6 Kenneth, 01/25/ hours as M.D. 2016 needed Oxycodone HCL 11/17/ Hx Tablets 5mg 40tabs 1-2 tabs by Italo 2016 - mouth every Kenneth, 01/25/ 4-6 hours M.D. 2016 as needed Meloxicam 10/17/ Hx Tablets 7.5mg 30tabs 1 by mouth Italo 2016 - per day Kenneth, 04/19/ M.DRoro 2017 Augmentin 09/29/ Hx Tablets 875-125mg 20tabs one by Marjan 2014 - mouth every Saira-Yo 09/22/ 12 hours Abbey rodriguez 2015 for ten days Oxycodone HCL 09/15/ Hx Tablets 5mg 60tabs 1-2 by Marjan 2014 - mouth four Chávez-Yo 10/31/ times a day Abbey rodriguez 2015 as needed Neurontin / Hx 600mg bid Unknown 2015 Hydrocodone-Kelvin / Hx 10/325 Unknown taminophen 2015 Keflex / Hx Unknown 2015 Adderall / Hx Tablets as directed Unknown - 2015 Zithromax Z-Waqas / Hx Tablets 250mg two by Unknown 0000 - mouth 2015 then one by mouth daily Mobic / Hx Tablets 7.5mg 1 by mouth Unknown 0000 - every day 2016 Medications Administered in Office Medication Date Status Form Strength Qnty SIG Indications Ordering Provider Celestone 3 mg Administered Injection Marjan and 3mg 015 Chávez-Fer g, M.D. Vital Signs Date Vital Result Comment 06/19/2017 Height 64 inches 5'4" Heart Rate 98 /min BP Systolic 128 mmHg BP Diastolic 78 mmHg Respiratory Rate 16 /min Body Temperature 98.4 F Pain Level 6 04/19/2017 Height 64 inches 5'4" Weight 225.00 lb Heart Rate 90 /min Respiratory Rate 14 /min Body Temperature 98.4 F Pain Level 4 BMI (Body Mass Index) 38.6 kg/m2 02/22/2017 Height 64 inches 5'4" Weight 225.00 lb Respiratory Rate 16 /min Pain Level 3 BMI (Body Mass Index) 38.6 kg/m2 01/25/2017 Height 64 inches 5'4" Weight 225.00 lb per patient Heart Rate 78 /min BP Systolic Sitting 130 mmHg BP Diastolic Sitting 82 mmHg Pain Level 6 BMI (Body Mass Index) 38.6 kg/m2 12/27/2016 Height 64 inches 5'4" Weight 225.00 lb Heart Rate 80 /min BP Systolic 126 mmHg BP Diastolic 78 mmHg Body Temperature 98.2 F Pain Level 4 BMI (Body Mass Index) 38.6 kg/m2 11/30/2016 Height 64 inches 5'4" Weight 225.00 lb BP Systolic 122 mmHg BP Diastolic 82 mmHg Respiratory Rate 16 /min Body Temperature 98.6 F Pain Level 7 BMI (Body Mass Index) 38.6 kg/m2 10/17/2016 Height 64 inches 5'4" Weight 225.00 lb Heart Rate 66 /min BP Systolic Sitting 122 mmHg BP Diastolic Sitting 80 mmHg Body Temperature 98.2 F BMI (Body Mass Index) 38.6 kg/m2 03/23/2016 Height 64 inches 5'4" Weight 224.00 lb weighed today Heart Rate 64 /min BP Systolic 115 mmHg BP Diastolic 70 mmHg Respiratory Rate 18 /min Pain Level 4 BMI (Body Mass Index) 38.4 kg/m2 11/02/2015 Height 64 inches 5'4" Weight 205.00 lb Respiratory Rate 18 /min Pain Level 5 BMI (Body Mass Index) 35.2 kg/m2 10/12/2014 Height 64 inches 5'4" Weight 205.00 lb Pain Level 3 BMI (Body Mass Index) 35.2 kg/m2 09/29/2014 Height 64 inches 5'4" Weight 205.00 lb Body Temperature 98.0 F Pain Level 5 BMI (Body Mass Index) 35.2 kg/m2 09/23/2014 Height 64 inches 5'4" Weight 205.00 lb BMI (Body Mass Index) 35.2 kg/m2 09/21/2014 Height 64 inches 5'4" Weight 205.00 lb Body Temperature 97.9 F BMI (Body Mass Index) 35.2 kg/m2 09/15/2014 Height 64 inches 5'4" Weight 205.00 lb Heart Rate 82 /min BP Systolic 123 mmHg BP Diastolic 73 mmHg BMI (Body Mass Index) 35.2 kg/m2 08/18/2014 Height 64 inches 5'4" Weight 215.00 lb Heart Rate 84 /min BP Systolic 98 mmHg BP Diastolic 75 mmHg BMI (Body Mass Index) 36.9 kg/m2 Results Description No Information Procedures Date CPT Code Description Status 11/30/2016 79781 Short Leg Cast Completed 11/20/2016 14978 Repair Collateral Ligament Ankle, Secondary Completed 11/20/2016 51746 Repair Collateral Ligament Ankle, Secondary Completed 09/21/2014 44597 Short Arm Splint Application Completed 09/17/2014 07879 Carpal Tunnel Release Completed 09/17/2014 77940 Carpal Tunnel Release Completed 09/17/2014 38460 Neuroplasty &/Or Transposition; Ulnar Nerve At Completed Elbow 09/17/2014 17307 Neuroplasty &/Or Transposition; Ulnar Nerve At Completed Elbow 08/18/2014 41044 Injection, Carpal Tunnel Completed Encounters Type Date Location Provider CPT E/M Dx Office Visit 04/19/2017 [facility] Cooper 99207 M25.371 11:30a Of Lisa Potter S93.409D Office Visit 02/22/2017 11:30a [facility] Italo Cooper 49597 M25.371 Of Lisa Potter Office Visit 10/17/2016 8:30a [facility] Italo Cooper 60736 S93.409D Of Lisa Potter M25.371 Office Visit 03/23/2016 8:30a [facility] Italo Cooper 13830 S93.409D Of Lisa Potter Office Visit 11/02/2015 3:20p [facility] Italo Cooper 94912 S93.409D Of Lisa Potter Office Visit 09/28/2015 3:00p [facility] Italo Cooper 09015 M76.71 Of Lisa Potter Office Visit 08/18/2014 10:00a [facility] [place] 66188 354.0 Of Lisa Corcoran M.D. 354.2 Plan of Care No Information Available
[2017-07-04 20:25] VITALS: BP 142/91
[2017-07-04] MEDS ORDERED: Amoxicillin/Clavulanate TAB* 875 MG PO ONE (21:10)
--- NOTE | 2017-07-04 21:15 | UC ---
Safia Weldon Rebecca, scribed for Cirilo Dominguez MD on 07/04/17 at 2106 . Ear Complaint HPI - HPI Summary HPI Summary: Pt is a 36 y/o F who presents to [facility] c/o ear and throat pain. All her symptoms began 5 days ago, gradually worsening. On triage, ear pain was moderate , ranked 7/10 on triage. Throat pain is worse with swallowing, alleviated by nothing. Additionally c/o cough, post-nasal drip, rhinorrhea, sinus congestion, rhinorrhea. Additionally notes "bumps on the back of my tongue" which she noticed today. PSHx turbinectomy on the right ear. SHx current smoker. Has not gone swimming recently. - History of Current Complaint Chief Complaint: UCEar Stated Complaint: COUGH,CONGESTION Time Seen by Provider: 07/04/17 20:53 Hx Obtained From: Patient Hx Last Menstrual Period: hysterectomy Onset/Duration: Lasting Days - 5 days, Still Present Severity Currently: Moderate Pain Intensity: 7 Pain Scale Used: 0-10 Numeric Aggravating Factors: Other - Throat - swallowing Alleviating Factors: Nothing Associated Signs/Symptoms: Positive: URI Symptoms Related History: Smoking - Allergies/Home Medications Allergies/Adverse Reactions: Allergies Allergy/AdvReac Type Severity Reaction Status Date / Time codeine Allergy Intermediate ITCH Verified 07/04/17 20:26 diphenhydramine Allergy iv DOSE, Verified 07/04/17 20:26 [From Benadryl] PANIC ATTACK ENVIRONMENTAL Allergy Unknown Uncoded 07/04/17 20:26 Reaction Details Home Medications: Home Medications D-Methorphan/PE/Acetaminophen [Vicks Dayquil Liquid] 1 tab PO DAILY 07/04/17 [ History Confirmed 07/04/17] Gabapentin CAP(*) [Neurontin 300 CAP(*)] 1 tab PO BEDTIME PRN 07/04/17 [History Confirmed 07/04/17] Thyroid Support 1 tab PO DAILY 07/04/17 [History Confirmed 07/04/17] PMH/Surg Hx/FS Hx/Imm Hx - Additional Past Medical History Additional PMH: NEGATIVE PMHx: DM, COPD Respiratory History: Asthma Other History Of: Negative For: Anticoagulant Therapy - Surgical History Surgical History: Yes Surgery Procedure, Year, and Place: [place] 2002, [place]LECYSTECTOMY [place] 2007, PLEOMORPHIC ADENECTOMY [facility] 2007, 2009 RIGHT CARPAL TUNNEL RELEASE [place], 2008 ENDOSCOPY [place],. HYSERECTOMY 2015 [place], 2014 LEFT CARPAL TUNNEL RELEASE [place] [place] 2015 RIGHT CARPAL TUNNEL REVISION, 2015 ULNAR NURVE RELEASE RIGHT, RIGHT ANKLE REPAIR - Family History Known Family History: Positive: Cardiac Disease, Hypertension Negative: Diabetes - Social History Alcohol Use: None Substance Use Type: None Smoking Status (MU): Heavy Every Day Tobacco Smoker Type: Cigarettes Amount Used/How Often: 1/2 PPD X OFF AND ON FOR 18 YEARS Have You Smoked in the Last Year: Yes When Did the Patient Quit Smoking/Using Tobacco: 07/2013 Household Exposure Type: Cigarettes - Immunization History Most Recent Influenza Vaccination: not this year Review of Systems Constitutional: Negative Skin: Negative Eyes: Negative ENT: Sore Throat, Ear Ache - RIght, Nasal Discharge, Sinus Congestion, Other - Post-nasal drip, "bumps" on the tongue Respiratory: Cough Cardiovascular: Negative Gastrointestinal: Negative Genitourinary: Negative Motor: Negative Neurovascular: Negative Musculoskeletal: Negative Neurological: Negative Psychological: Negative All Other Systems Reviewed And Are Negative: Yes Physical Exam - Summary Physical Exam Summary: General: well-appearing, no pain distress Skin: warm, color reflects adequate perfusion, dry Head: normal Eyes: EOMI, JOHN ENT: tenderness to traction on the pinne and palpation of her tragus on the right, her right TM is erythematous, the posterior pharynx is erythematous, positive anterior cervical lymphadenopathy Neck: supple, nontender Respiratory: CTA, breath sounds present Cardiovascular: RRR Abdomen: soft, nontender Bowel: present Musculoskeletal: normal, strength/ROM intact Neurological: sensory/motor intact, A&O x3 Psychological: affect/mood appropriate Triage Information Reviewed: Yes Vital Signs: Initial Vital Signs Temp 98.1 F 07/04/17 20:20 Pulse 97 07/04/17 20:20 Resp 17 07/04/17 20:20 BP 142/91 07/04/17 20:20 Pulse Ox 97 07/04/17 20:20 Vital Signs Reviewed: Yes Ear Complaint Course/Dx - Differential Dx/Diagnosis Provider Diagnoses: RIGHT OTITIS MEDIA AND EXTERNA Discharge - Sign-Out/Discharge Documenting (check all that apply): Discharge/Admit/Transfer - Discharge - Discharge Plan Condition: Stable Disposition: HOME Prescriptions: Amoxicillin/Clavulanate TAB* [Augmentin TAB 875*] 875 mg PO BID #19 tab Neomyc/Polym/HC 1% OTIC SUSP* [Cortisporin Otic Susp 1%*] 4 drop BOTH EARS QID # 1 btl Patient Education Materials: Otitis Externa (ED), Ear Infection (ED) Referrals: [facility] [Outside] Additional Instructions: FOLLOW UP WITH YOUR DOCTOR. GET RECHECKED FOR ANY WORSENING OF YOUR CONDITION OR QUESTIONS OR CONCERNS. - Billing Disposition and Condition Condition: STABLE Disposition: HOME The documentation as recorded by the Safia balderas Rebecca accurately reflects the service I personally performed and the decisions made by me, Cirilo Dominguez MD.
== END 2017-07-04 21:15 | disposition home or self-care (01) ==
LOC: UCEAST 20:07
DX: H66.91 Otitis media, unspecified, right ear (principal); H60.91 Unspecified otitis externa, right ear; J45.909 Unspecified asthma, uncomplicated; Z88.5 Allergy status to narcotic agent; Z87.891 Personal history of nicotine dependence
CPT/HCPCS: 87651; 99212; A9270-GY; G0463

== ENCOUNTER → 2017-12-03 06:10 | Day surgery (SDC) | payer OTHER ==
[~2017-12-03 06:10] MED LIST changes: +Buffered Lidocaine 0.9% SYRIN* 5 ML/SYR SYRINGE ONE; +Bupivacaine 0.5% SDV PF* 30ML VIAL ONE; +Cisatracurium* 2 MG/ML MDV 5 ML ONE; +Dexamethasone IV* 4 MG/ML 1 ML (4 MG) ONE; +EPHEDrine (Pressors)* 50 MG/ML VIAL ONE; +Famotidine IV* 10 MG/ML 2 ML (20 mg) IV ONE; +Famotidine IV* 10 MG/ML 2 ML (20 mg) ONE; +Glycopyrrolate IV* 0.2 MG/ML 1 ML VIAL ONE; +HYDROmorphone INJ1* 1 MG/ML SYRINGE ONE; +KETAMINE HCL* 50 MG/ML 10 ML VIAL ONE; +Ketorolac INJ* 30 MG/ML 1 ML VIAL ONE; +Levalbuterol 0.63MG/3ML NEB* UNIT OF USE INH PRN; +Levalbuterol HFA INHALER* 1 PUFF MDI ONE; +Lidocaine 2% PF * 5 ML VIAL ONE; +Metoclopramide TAB* 10 MG PO ONE; +Midazolam* 1 MG/ML 5 ML VIAL (5 MG) ONE; +Naloxone* 0.4 MG/ML 1 ML VIAL IV PRN; +Neostigmine Methylsulfate* 1 MG/ML 10 ML VIAL (1 mg/ml) ONE; +Ondansetron INJ* 2 MG/ML VIAL IV PRN; +Ondansetron INJ* 2 MG/ML VIAL ONE; +Propofol* 10 MG/ML 20 ML BTL IV PUSH ONE; +ceFAZolin 2 GM PREMIX in ORs 2 GM/50 ML BAG IVPB ONE; +fentaNYL* 50 MCG/ML 2 ML VIAL (100 MCG VIAL) ONE; +oxyCODONE/Acetamin 5/325 MG* TAB ONE
[2017-12-03] MEDS: fentaNYL* 50 MCG/ML 2 ML VIAL (100 MCG VIAL) IV PRN ×5 (09:08→11:00)
[2017-12-03] MEDS: HYDROmorphone INJ1* 1 MG/ML SYRINGE IV PRN ×2 (09:12→09:46)
[2017-12-03] MEDS: oxyCODONE/Acetamin 5/325 MG* TAB PO PRN ×2 (09:32→10:09)
[2017-12-03 11:37] VITALS: BP 127/73
--- NOTE | 2017-12-04 07:44 | OP ---
DATE OF OPERATION: 12/03/17 - SDS DATE OF : 82 SURGEON: Italo Cooper MD ORTHOTIST: Jackie Ball PA-C PRE-OP DIAGNOSIS: Recurrent instability, right ankle. POST-OP DIAGNOSIS: Recurrent instability, right ankle. OPERATIVE PROCEDURE: Right ankle ligament repair with allograft. DESCRIPTION OF PROCEDURE: The patient was taken to the operating room where lateral longitudinal incision was made over the distal fibula. I raised the flap anteriorly off of the fibula to expose the junction of the lateral gutter of the talar articular cartilage in the neck of the talus. We drove a guide pin at this point to the eventual allograft. The semitendinosus graft was doubled onto itself and then whipstitched with a 2-0 Vicryl suture. This measured about 6.5 mm in size, so we drilled a 7 mm diameter blind tunnel about 18 mm deep at the junction on the talar neck origin. We passed the tendon then on a 0-Vicryl suture down into the blind tunnel pulling it through medially to anchor it in the base of the tunnel. We then anchored this with a 6.25 x 15 mm Bio-Tenodesis screw. We then brought the free edge of the allograft up along the lateral border of the fibula and created a groove with a small power ivana through the lateral cortex. We tensioned the tendon and plated it with a 2.4 mm mini fragment plate of the Arthrex system. X-ray intraoperatively showed satisfactory position of the hardware. We then repaired the capsule anteriorly sewing it to the allograft as well as the redundant capsule or the redundant periosteum of the fibula. We then closed the subcu tissue and the skin with nylon and a compression dressing, and plaster splint. [id number]/[facility] #: [id number] [place]
--- NOTE | 2017-12-04 07:55 | RAD ---
CPT II Codes: G9500 INDICATION: Right ankle fracture TECHNIQUE: Intraoperative fluoroscopy was provided during ORIF. FINDINGS: A single spot film depicts a plate and screw fixator along the lateral margin of the right fibular malleolus Fluoroscopy time: 1.1 second IMPRESSION: As above.
== END | disposition home or self-care (01) ==
LOC: OR 06:10
PROVIDERS: ATTEND Orthopaedic Surgery
DX: M25.371 Other instability, right ankle (principal); M76.71 Peroneal tendinitis, right leg; Z72.0 Tobacco use; F41.8 Other specified anxiety disorders; J45.909 Unspecified asthma, uncomplicated; K21.9 Gastro-esophageal reflux disease without esophagitis
CPT/HCPCS: 76000; A9270-GY; C1713; C1776; J0690; J1100; J1170; J1885; J2250; J2405; J2704; J2710; J3010; L8699